=== PATIENT | male | born 1950 | race African-American/Black ===

== ENCOUNTER → 2016-10-25 | Day surgery (SDC) | payer OTHER ==
[~2016-10-25] MED LIST: AVOD0.5C PO; BUPIVACAINE HCL PF 0.75% 30 ML VIAL ONE; EPINEPHrine HCL (1:1000) 30 MG/30 ML VIAL ONE; LACTATED RINGER'S 1000 ML INJ 1,000 ML ONE; LIDOCAINE 1.5%/EPINEPHrine 1:200,000 PF SOLN 30 ML AMP ONE; MIDAZOLAM HCL 5 MG/ML VIAL (1 ML) ONE; PROPOFOL 200 MG/20 ML AMP IV ONE; ROBA750T PO; ceFAZolin 2 GM PREMIX 50 ML ONE
--- NOTE | 2016-10-29 14:22 | MP ---
cc: TEVIN BOSS M.D. DATE OF SURGERY: 10/25/2016. PREOPERATIVE DIAGNOSIS Right shoulder full-thickness rotator cuff tear and impingement syndrome. POSTOPERATIVE DIAGNOSIS Right shoulder full-thickness rotator cuff tear and impingement syndrome. PROCEDURE 1. Right shoulder arthroscopic rotator cuff repair using [employer] biocomposite speedbridge technique. 2. Right shoulder arthroscopic subacromial decompression. 3. Arthroscopic debridement of biceps tendon and superior labrum. ANESTHESIA Interscalene block and general. SURGEON Tevin Boss MD DIGITAL STRATEGY DIRECTOR SURGEON DESTINY Olson ESTIMATED BLOOD LOSS Minimum. DRAINS None. SPECIMEN None. COMPLICATIONS None known. IDENTIFICATION Bunny Grace is a 66-year-old male who sustained a work-related injury to his right shoulder. Workup revealed full thickness rotator cuff tear. He failed to respond to conservative measures and now presents for arthroscopic surgical repair. The risks and benefits were thoroughly discussed and detailed informed consent was obtained. The assistant statistician Ian Sterling is an advanced registered nurse practitioner and his skill-set is medically necessary for the performance of the operation. PROCEDURE The patient was given interscalene block in the preop holding area. He was brought to the operating room, placed under general anesthetic. The right upper extremity was draped and prepped in the usual sterile fashion. IV antibiotics were given, timeout was completed. The bony landmarks were drawn out about the shoulder. We used three portal technique, one on the posterior soft spot, one at the junction of the middle and anterior one-third of the acromion and accessory portal anteriorly off the acromion. Blunt trocar was used to introduce the cannula posteriorly. The first photograph shows articular surfaces of the glenoid and humeral head which appears normal. Second photograph shows fraying along the superior labrum and as we look upward we see the rotator cuff full thickness tear as well as fraying along the posterior edge of the biceps tendon and we see that the rotator cuff tear is actually quite large and we begin to prepare the footprint and debride the biceps tendon and the superior labrum and then we take another follow-up photograph from underneath and then we proceed to fine-tune and smooth the superior labrum and into the posterior labrum and smoothed along the biceps tendon and then going to the subacromial space and performed bursectomy and then proceed to debride the biceps tendon and smooth and fine tune that and then proceed to debride dysvascular areas of the rotator cuff tear. There was basically a two-layer type injury and the superficial layer was more of a reverse L configuration and we proceeded to prepare this to bleeding bone on the proximal humerus and then determine how to best fixate this and we proceeded with a speedbridge technique with two anchors along the articular margin, by about a centimeter and a half. The first anchor was just posterior to the biceps tendon and then we proceeded to pass these anchors. The posterior anchor we did this in two separate passes, one in the deep layer and then one in the superficial layer. Once we had these passed, then we proceeded to do a [id number] stitch with the white fiber wire tape posteriorly and we ran a stitch to pull this back together and then did a [id number] at the more lateral border and this tied off and brought this in a nice position and then before we placed our lateral based anchors we did an accessory suture anteriorly to pull it to the front anchor and we proceeded to anchor down the cuff down on top of bleeding bone, a very solid repair. We had already identified the subacromial spur and performed subacromial bursectomy and acromionectomy removing approximately 3 mm of bone on most anterior aspect and now we did a followup photograph of the repair and followup of the repair in the anterior acromial region showing the decompression. Hemostasis was very good. Arthroscopic equipment was removed. We closed with absorbable sutures. Steri-Strips were applied. Sterile dressing was applied. Standard sling was applied. The patient was awoken and returned to the recovery room in stable condition. MD SAVANNAH Espinal/SYLVIA /10:34 AM /1:58 PM
== END | disposition home or self-care (01) ==
LOC: ESDC 07:01
PROVIDERS: ATTEND Orthopaedic Surgery Sports Medicine
DX: M75.121 Complete rotator cuff tear or rupture of right shoulder, not specified as traumatic (principal); M75.41 Impingement syndrome of right shoulder
CPT/HCPCS: 01630; 01991; 29823; 29826; 29827; 64417; C1713; J0171; J0690; J2250; J7120